=== PATIENT | male | born 1970 | race Caucasian/White ===

== ENCOUNTER 2021-04-08 09:17 | Day surgery (SDC) | payer BC ==
--- NOTE | 2021-04-07 12:49 | RAD REPORT ---
EXAM DESCRIPTION: RAD - Chest Pa And Lat (2 Views) - 04/07/2021 12:41 pm CLINICAL HISTORY: pre op COMPARISON: No comparisons FINDINGS: No evidence of edema or pneumonia. The heart size is within normal limits.No acute osseous abnormality. No significant pleural effusions or pneumothorax. IMPRESSION: No acute cardiopulmonary disease.
[2021-04-07 12:50] LABS: Absolute Lymphocytes (CBC) 2.9 K/uL (0.7-4.9); Basophils % 0.9 % (0-1.3); Lymphocytes % 40.8 % (15.3-44.8); RBC Red Blood Cell Count 5.07 M/uL (4.33-5.43)
[2021-04-07 12:57] LABS: Protime INR 1.02
[2021-04-07 13:18] LABS: BUN Blood Urea Nitrogen 14 mg/dL (7-18); Bicarbonate 28 mmol/L (21-32); Glucose Level 88 mg/dL (74-106); Potassium 3.7 mmol/L (3.5-5.1); Sodium Level 136 mmol/L (136-145)
[2021-04-08] MEDS ORDERED: NA CHLORIDE 0.9% 500 ML ONE (09:53)
[2021-04-08] MEDS ORDERED: HEPA 1000U/500MLS 1,000 UNIT/500 ML BAG IV ONE (10:27)
[2021-04-08] MEDS ORDERED: LIDOCAINE 1% 20 ML MDV ONE (10:27)
[2021-04-08] MEDS ORDERED: MIDAZOLAM HCL 2 MG/2 ML INJ ONE ×3 (10:28→11:29)
[2021-04-08] MEDS ORDERED: DIPHENHYDRAMINE 50 MG/ML VIAL ONE (10:29)
[2021-04-08] MEDS ORDERED: FENTANYL CITR 100 MCG/2 ML ONE (10:29)
[2021-04-08] MEDS ORDERED: METHYLPREDNISOLONE 125 MG INJ ONE (10:30)
[2021-04-08] MEDS ORDERED: NA CHLORIDE 0.9% 0 ML ONE (10:30)
--- NOTE | 2021-04-08 11:58 | OP ---
Surgeon: Eh Redd MD Procedure Performed: Admitted as an outpatient on 04/08/2021 to the oven laborer for a left heart cathet erization and selective coronary arteriogram. Indication: CAD and unstable angina. Mr. Keyes is a 50-year-old white male with history of hype rtension, chronic pain, insomnia, anxiety, who came into the office yesterday with substernal chest p ain radiating to the arm and jaw with and without exertion. His EKG was unremarkable, but he has had a history of coronary artery disease in the past with 20%, 30%, and 40% stenosis in different vessel s. Procedure In Detail: Brought to the oven laborer today as an outpatient, prepped and draped in routine s terile fashion. He has allergy to iodine. He was given Benadryl and IV Solu-Medrol. He was given V ersed and fentanyl for sedation. Using the Seldinger technique, 10 mL of Xylocaine were used. Then, a 6-Nepali sheath introduced in the right common femoral artery successfully. Angiography there was normal. Angio-Seal was used to close the case. Lizette catheter left and right were used to cannul ate the left main and right main. The RCA was normal, it was dominant. The left main was normal. L AD was actually perfectly normal without any stenosis. I did notice that flow distally in the LAD wa s slow, but complete without any focal stenosis. The circ and left main were normal. There was some minor plaquing at the ostium of the obtuse marginal. The patient was right dominant. There were no complications. Blood Loss: 5 mL. Postoperative Diagnosis: Minimal coronary artery disease. Plan: To continue medical therapy. Angio-Seal was used to close the case. The patient will wait in the hospital for 2 hours of bedrest before going home. I will see him in the office in 2 weeks. No change in medicine for now. Anesthesia: Total conscious sedation was 45 minutes. NB/MODL Voice ID: [id number] Report ID: [id number]
[2021-04-08 12:10] VITALS: O2SAT 98
[2021-04-08 12:27] VITALS: TEMP 96.7
[2021-04-08 13:01] VITALS: BP 109/78
== END 2021-04-08 13:20 | disposition home or self-care (01) ==
LOC: CCL 09:17
DX: I25.110 Atherosclerotic heart disease of native coronary artery with unstable angina pectoris (principal); I10 Essential (primary) hypertension; G89.29 Other chronic pain; G47.00 Insomnia, unspecified; F41.9 Anxiety disorder, unspecified; Z91.041 Radiographic dye allergy status; Z88.6 Allergy status to analgesic agent; Z20.822 Contact with and (suspected) exposure to COVID-19
CPT/HCPCS: 85025; 80048; 36415; 85610; 85730; 71046; 93454; U0003; C1893; C1760; J2250 ×3; J3010; J7040; J1644; J2930; J0583; J1200